=== PATIENT | female | born 1990 | race Caucasian/White ===

== ENCOUNTER 2018-12-21 10:30 | Inpatient (IN) | payer MEDICAID ==
[~2018-12-21] VITALS: Ht 162.6 cm; Wt 61.2 kg
[2018-12-21 10:48] VITALS: Ht 162.6 cm; Wt 61.2 kg
[2018-12-21 11:21] LABS: BASOPHIL % 0.5 % (0-2); PLATELET COUNT 231 x10^3mcL (130-400); RED CELL DISTRIBUTION WIDTH 13.1 % (11.5-14.5)
[2018-12-21 11:27] LABS: CALCIUM 9.1 mg/dL (8.5-10.1); CARBON DIOXIDE 29.3 mmol/L (21-32); CHLORIDE SERUM 105 mmol/L (98-107); CREATININE SERUM 0.8 mg/dL (0.6-1.0); GFR1 > 60 mL/min; GLUCOSE SERUM 83 mg/dL (74-106); POTASSIUM SERUM 4.2 mmol/L (3.5-5.1); SODIUM SERUM 143 mmol/L (136-145)
[2018-12-21 11:33] LABS: ALBUMIN 4.2 g/dL (3.4-5.0); ALKALINE PHOSPHATASE 127 U/L (46-116); ALT/SGPT 29 U/L (14-59); AST/SGOT 21 U/L (15-37); BILIRUBIN TOTAL 0.6 mg/dL (0.20-1.00); TOTAL PROTEIN, SERUM 8.1 g/dL (6.4-8.2)
[2018-12-21 12:02] LABS: microscopic required? YES; urine erythrocyte 3+ (NEGATIVE)
[2018-12-21 16:44] VITALS: BP 104/58
[2018-12-21 19:45] VITALS: BP 117/56
[2018-12-21 20:15] VITALS: BP 102/49
[2018-12-21 20:45] VITALS: BP 102/47
[2018-12-21 22:00] VITALS: BP 121/51
[2018-12-21 23:35] VITALS: BP 117/72
[2018-12-22 05:33] VITALS: BP 99/54
[2018-12-22 07:42] LABS: BASOPHIL % 0.3 % (0-2); PLATELET COUNT 210 x10^3mcL (130-400); RED CELL DISTRIBUTION WIDTH 12.8 % (11.5-14.5)
[2018-12-22 07:51] LABS: CARBON DIOXIDE 25.5 mmol/L (21-32); CHLORIDE SERUM 105 mmol/L (98-107); CREATININE SERUM 0.8 mg/dL (0.6-1.0); GFR1 > 60 mL/min; GLUCOSE SERUM 96 mg/dL (74-106); MAGNESIUM 1.9 mg/dL (1.8-2.4); PHOSPHOROUS 4.9 mg/dL (2.5-4.9); SODIUM SERUM 140 mmol/L (136-145)
[2018-12-22 10:03] VITALS: BP 93/58
[2018-12-22 16:42] VITALS: BP 100/54
[2018-12-22 21:34] VITALS: BP 111/72
[2018-12-23 06:42] VITALS: BP 103/55
[2018-12-23 09:12] VITALS: BP 110/59
[2018-12-23] MEDS ORDERED: IBUPROFEN400 MG PO (12:30)
[2018-12-23 13:13] VITALS: BP 110/59
== END 2018-12-23 15:36 | disposition home or self-care (01) | DRG 234 ==
LOC: ED 10:30 → MU 15:07
PROVIDERS: Emergency Medicine; Surgery; ADMIT Internal Medicine
PROC: 0DTJ4ZZ Resection of Appendix, Percutaneous Endoscopic Approach (ICD-10-PCS; principal; 2018-12-21 18:00)
DX: K35.80 Unspecified acute appendicitis (principal)
CPT/HCPCS: 94150; J0330; J1170; J1885; J1956; J2270; J2405; J2550; J2704; J2710; J3010; J3490; J7030; J7120